=== PATIENT | male | born 1970 | race Caucasian/White ===

== ENCOUNTER → 2023-02-28 12:14 | Outpatient (BNVA) | payer OTHER, SELFPAY | PROVIDERS: PCP Nurse Practitioner Adult Health; Visit Provider Physician Assistant | DX: T63.91XA Toxic effect of contact with unspecified venomous animal, accidental (unintentional), initial encounter (principal); W57.XXXA Bitten or stung by nonvenomous insect and other nonvenomous arthropods, initial encounter; H02.846 Edema of left eye, unspecified eyelid | CPT/HCPCS: 99203 ==